=== PATIENT | female | born 1955 | race Caucasian/White ===

== ENCOUNTER → 2017-09-13 | Outpatient (CLI) | payer OTHER | LOC: M RAD 10:08 | DX: R22.43 Localized swelling, mass and lump, lower limb, bilateral (principal); I70.213 Atherosclerosis of native arteries of extremities with intermittent claudication, bilateral legs | CPT/HCPCS: 93925 ==

== ENCOUNTER → 2017-09-30 | Outpatient (CLI) | payer OTHER ==
[2017-09-30 15:50] LABS: BASO % 0.2 % (0.0-1.0); EOS # 0.3 10^3/uL (0.0-0.50); EOS % 3.5 % (0.0-3.0); HEMATOCRIT 32.3 % (36.0-47.0); HEMOGLOBIN 10.9 g/dl (12.0-15.5); IMMATURE GRANULOCYTE % 0.1 % (0-3.0); LYMPH # 1.9 10^3/uL (1.5-4.5); LYMPH % 22.7 % (24.0-44.0); MEAN CORPUSCULAR HEMOGLOBIN 28.9 pg (27.0-33.0); MEAN CORPUSCULAR HGB CONC 33.7 g/dl (32.0-36.5); MEAN CORPUSCULAR VOLUME 85.7 fl (80.0-96.0); MONO # 0.5 10^3/uL (0.0-0.8); MONO % 6.3 % (0.0-5.0); NEUTROPHILS # 5.6 10^3/uL (1.8-7.7); NEUTROPHILS % 67.2 % (36.0-66.0); PLATELET COUNT, AUTOMATED 287 10^3/uL (150-450); RED BLOOD COUNT 3.77 10^6/uL (4.00-5.40); RED CELL DISTRIBUTION WIDTH 12.2 % (11.5-14.5); WHITE BLOOD COUNT 8.3 10^3/uL (4.0-10.0)
[2017-09-30 16:21] LABS: ANION GAP 11 MEQ/L (8-16); BLOOD UREA NITROGEN 17 MG/DL (7-18); CALCIUM LEVEL 8.6 MG/DL (8.8-10.2); CARBON DIOXIDE LEVEL 22 MEQ/L (21-32); CHLORIDE LEVEL 104 MEQ/L (98-107); CREATININE FOR GFR 1.08 MG/DL (0.55-1.30); GLOMERULAR FILTRATION RATE 54.9 (>45); GLUCOSE, FASTING 302 MG/DL (70-100); SODIUM LEVEL 137 MEQ/L (136-145)
[2017-09-30 16:22] LABS: POTASSIUM SERUM 5.2 MEQ/L (3.5-5.1)
== END ==
LOC: M LAB 15:01
DX: I70.213 Atherosclerosis of native arteries of extremities with intermittent claudication, bilateral legs (principal); I87.393 Chronic venous hypertension (idiopathic) with other complications of bilateral lower extremity
CPT/HCPCS: 80048

== ENCOUNTER → 2017-10-14 | Outpatient (CLI) | payer OTHER ==
[~2017-10-14] MED LIST: HEPARIN 1,000 UNITS/ML 10ML VIAL (FOR RADIOLOGY& DIALYSIS ONLY) As Ordered; ISOVUE-300 61% 50ML VIAL (Q9967) As Ordered; MIDAZOLAM INJ 2 MG/2 ML VIAL (J2250) As Ordered; fentaNYL 100 MCG/2 ML INJECTION (J3010) As Ordered
== END | disposition home or self-care (01) ==
LOC: M IRPRO 06:22
DX: I73.9 Peripheral vascular disease, unspecified (principal); L97.929 Non-pressure chronic ulcer of unspecified part of left lower leg with unspecified severity; M79.89 Other specified soft tissue disorders; E11.51 Type 2 diabetes mellitus with diabetic peripheral angiopathy without gangrene; I10 Essential (primary) hypertension; E78.00 Pure hypercholesterolemia, unspecified; G47.33 Obstructive sleep apnea (adult) (pediatric); Z87.891 Personal history of nicotine dependence
CPT/HCPCS: 36247

== ENCOUNTER 2017-12-16 08:10 | Day surgery (SDC) | payer OTHER ==
[2017-12-16] MEDS: NS 1,000 ML IV (08:15)
[2017-12-16] MEDS ORDERED: fentaNYL 100 MCG/2 ML INJECTION (J3010) As Ordered (09:32)
[2017-12-16] MEDS ORDERED: PROPOFOL 500 MG/50 ML VIAL As Ordered (10:27)
[2017-12-16] MEDS ORDERED: LIDOCAINE 2% INJ 100 MG/5 ML SDV (FOR ANES.) As Ordered (10:27)
== END 2017-12-16 12:45 | disposition home or self-care (01) ==
LOC: M OPP 08:10
DX: D50.9 Iron deficiency anemia, unspecified (principal); K64.8 Other hemorrhoids; K57.30 Diverticulosis of large intestine without perforation or abscess without bleeding; K29.70 Gastritis, unspecified, without bleeding; K31.89 Other diseases of stomach and duodenum; I10 Essential (primary) hypertension; E78.5 Hyperlipidemia, unspecified; I73.9 Peripheral vascular disease, unspecified; E10.9 Type 1 diabetes mellitus without complications; E04.1 Nontoxic single thyroid nodule; R19.7 Diarrhea, unspecified; K21.9 Gastro-esophageal reflux disease without esophagitis; R12 Heartburn; J45.909 Unspecified asthma, uncomplicated; G47.30 Sleep apnea, unspecified; R06.83 Snoring; Z87.891 Personal history of nicotine dependence; Z79.82 Long term (current) use of aspirin; Z79.899 Other long term (current) drug therapy; Z79.4 Long term (current) use of insulin; Z80.1 Family history of malignant neoplasm of trachea, bronchus and lung
CPT/HCPCS: 45380

== ENCOUNTER 2018-01-24 17:27 | Emergency (ER) | payer OTHER ==
[2018-01-24 18:10] LABS: BASO % 0.4 % (0.0-1.0); EOS # 0.4 10^3/uL (0.0-0.50); EOS % 4.4 % (0.0-3.0); HEMATOCRIT 36.7 % (36.0-47.0); IMMATURE GRANULOCYTE % 0.3 % (0-3.0); LYMPH % 25.5 % (24.0-44.0); MEAN CORPUSCULAR HEMOGLOBIN 28.7 pg (27.0-33.0); MEAN CORPUSCULAR HGB CONC 32.7 g/dl (32.0-36.5); MEAN CORPUSCULAR VOLUME 87.8 fl (80.0-96.0); MONO # 0.6 10^3/uL (0.0-0.8); MONO % 7.2 % (0.0-5.0); NEUTROPHILS # 4.9 10^3/uL (1.8-7.7); NEUTROPHILS % 62.2 % (36.0-66.0); PLATELET COUNT, AUTOMATED 285 10^3/uL (150-450); RED BLOOD COUNT 4.18 10^6/uL (4.00-5.40); RED CELL DISTRIBUTION WIDTH 12.7 % (11.5-14.5); WHITE BLOOD COUNT 7.9 10^3/uL (4.0-10.0)
[2018-01-24 18:38] LABS: ANION GAP 10 MEQ/L (8-16); BLOOD UREA NITROGEN 27 MG/DL (7-18); C REACTIVE PROTEIN QUANTITATIV < 0.30 MG/DL (0.00-0.30); CALCIUM LEVEL 9.2 MG/DL (8.8-10.2); CARBON DIOXIDE LEVEL 23 MEQ/L (21-32); CHLORIDE LEVEL 104 MEQ/L (98-107); CREATININE FOR GFR 1.46 MG/DL (0.55-1.30); GLOMERULAR FILTRATION RATE 38.8 (>45); GLUCOSE, FASTING 181 MG/DL (70-100); POTASSIUM SERUM 5.7 MEQ/L (3.5-5.1); SODIUM LEVEL 137 MEQ/L (136-145)
== END 2018-01-24 19:25 | disposition home or self-care (01) ==
LOC: M ED 17:27
DX: I87.2 Venous insufficiency (chronic) (peripheral) (principal); I73.9 Peripheral vascular disease, unspecified; I10 Essential (primary) hypertension; E78.00 Pure hypercholesterolemia, unspecified; J45.909 Unspecified asthma, uncomplicated; K21.9 Gastro-esophageal reflux disease without esophagitis; G47.30 Sleep apnea, unspecified; E11.51 Type 2 diabetes mellitus with diabetic peripheral angiopathy without gangrene; Z79.899 Other long term (current) drug therapy; Z79.82 Long term (current) use of aspirin; Z79.4 Long term (current) use of insulin
CPT/HCPCS: 80048

== ENCOUNTER 2022-12-03 18:44 | Inpatient (IN) | payer OTHER ==
[~2022-12-03] VITALS: Ht 154.9 cm; Wt 101.0 kg
[~2022-12-03 18:44] MED LIST changes: +ASPI81TA26 PO; +ATOR40TA75 PO; +DULO1CAP4 PO; +FERR325T3 PO; +GABA600T4 PO; -HEPARIN 1,000 UNITS/ML 10ML VIAL (FOR RADIOLOGY& DIALYSIS ONLY) As Ordered; +INSUDET SC; +INSUH10VL SC; -ISOVUE-300 61% 50ML VIAL (Q9967) As Ordered; +JANU50TA25 PO; +LISI40TA4 PO; -MIDAZOLAM INJ 2 MG/2 ML VIAL (J2250) As Ordered; +OMEP1CAP73 PO; +VICT18IN SC; -fentaNYL 100 MCG/2 ML INJECTION (J3010) As Ordered
[2022-12-03] MEDS ORDERED: METOPROLOL 5 MG/5 ML VIAL As Ordered ONE (19:33)
[2022-12-03 19:37] LABS: BASO % 0.3 % (0.0-1.0); EOS # 0.1 10^3/uL (0.0-0.5); EOS % 1.1 % (0.0-3.0); HEMATOCRIT 21.9 % (36.0-47.0); LYMPH # 1.2 10^3/uL (1.5-5.0); MEAN CORPUSCULAR HEMOGLOBIN 23.6 pg (27.0-33.0); MEAN CORPUSCULAR HGB CONC 29.7 g/dl (32.0-36.5); MEAN CORPUSCULAR VOLUME 79.3 fl (80.0-96.0); MONO # 0.7 10^3/uL (0.0-0.8); MONO % 7.9 % (2.0-8.0); NEUTROPHILS # 6.9 10^3/uL (1.5-8.5); NEUTROPHILS % 77.2 % (36.0-66.0); PLATELET COUNT, AUTOMATED 397 10^3/uL (150-450); RED BLOOD COUNT 2.76 10^6/uL (4.00-5.40); WHITE BLOOD COUNT 8.9 10^3/uL (4.0-10.0)
[2022-12-03] MEDS: METOPROLOL 5 MG/5 ML VIAL IV SCH ×3 (19:40→22:00)
[2022-12-03 19:51] LABS: HEMOGLOBIN 6.5 g/dl (12.0-15.5)
[2022-12-03 20:07] LABS: CK-MB VALUE MASS < 1.0 NG/ML (<3.6)
[2022-12-03 20:09] LABS: BLOOD UREA NITROGEN 34 MG/DL (9-23); CARBON DIOXIDE LEVEL 21 MMOL/L (20-31); CHLORIDE LEVEL 103 MMOL/L (98-107); CREATININE FOR GFR 3.08 MG/DL (0.55-1.30); GLOMERULAR FILTRATION RATE 16.1 (>45); GLUCOSE, FASTING 251 MG/DL (74-106); POTASSIUM SERUM 3.8 MMOL/L (3.5-5.1); SODIUM LEVEL 140 MMOL/L (136-145)
[2022-12-03] MEDS ORDERED: NS 1,000 ML IV ONE (20:10)
[2022-12-03 20:12] LABS: CPK CREATINE PHOSPHOKINASE 134 U/L (34-145); MB/CK RELATIVE INDEX 0.74 (< OR =4)
[2022-12-03 21:05] LABS: MB/CK RELATIVE INDEX 0.83 (< OR =4)
[2022-12-03 21:45] VITALS: BP 135/87; TEMP 98.4; O2SAT 100
[2022-12-03] MEDS ORDERED: PANTOPRAZOLE 40MG VIAL IV ONE (21:50)
[2022-12-03] MEDS ORDERED: OCTREOTIDE ACETATE 100MCG/ML VIAL **IV ADMINISTRATION ONLY IV ONE (21:50)
[2022-12-03 22:00] VITALS: BP 168/81; TEMP 99.3
[2022-12-03 22:30] VITALS: BP 172/90; TEMP 99.1
[2022-12-03] MEDS ORDERED: MOM 30ML SUSPENSION UDC PO PRN (23:10)
[2022-12-03] MEDS ORDERED: MAALOX 30 ML SUSP *UDC PO PRN (23:10)
[2022-12-03 23:40] VITALS: BP 170/79; TEMP 98.9; O2SAT 97
[2022-12-03 23:46] LABS: CK-MB VALUE MASS 1.6 NG/ML (<3.6)
[2022-12-03 23:49] LABS: MB/CK RELATIVE INDEX 1.26 (< OR =4)
[2022-12-04] VITALS (11 sets, daily range): BP systolic 147–198; BP diastolic 70–95; TEMP 96.4–98.9; O2SAT 97–100
[2022-12-04] MEDS ORDERED: OCTREOTIDE ACETATE 1,200 MCG in NS 238.8 ML IV SCH ×2
[2022-12-04] MEDS ORDERED: GLUCOSE 4GM CHEW TABLET PO PRN (00:10)
[2022-12-04] MEDS ORDERED: GLUCAGON INJ 1MG VIAL SC PRN (00:10)
[2022-12-04] MEDS ORDERED: DEXTROSE 50% 50ML SYRINGE IV PRN (00:10)
[2022-12-04] MEDS ORDERED: JARD1TAB PO (02:13)
[2022-12-04] MEDS ORDERED: DULA4.5P SC (02:13)
[2022-12-04] MEDS ORDERED: ASPI-655 PO (02:13)
[2022-12-04] MEDS ORDERED: TRES1INJ SC (02:13)
[2022-12-04] MEDS ORDERED: DULO1CAP4 PO (02:13)
[2022-12-04] MEDS ORDERED: METF-723 PO (02:13)
[2022-12-04] MEDS ORDERED: HOME MED LIST COMPLETE! XX SCH (02:15)
[2022-12-04] MEDS: METOPROLOL SUCC *XL* 25MG TAB (TopROL *XL*) PO SCH ×2 (06:13→21:21)
[2022-12-04 06:28] LABS: BASO % 0.4 % (0.0-1.0); EOS # 0.1 10^3/uL (0.0-0.5); EOS % 0.7 % (0.0-3.0); HEMATOCRIT 30.7 % (36.0-47.0); LYMPH # 1.3 10^3/uL (1.5-5.0); LYMPH % 17.9 % (24.0-44.0); MEAN CORPUSCULAR HEMOGLOBIN 25.3 pg (27.0-33.0); MEAN CORPUSCULAR HGB CONC 31.3 g/dl (32.0-36.5); MEAN CORPUSCULAR VOLUME 80.8 fl (80.0-96.0); MONO # 0.8 10^3/uL (0.0-0.8); MONO % 10.8 % (2.0-8.0); NEUTROPHILS # 5.2 10^3/uL (1.5-8.5); NEUTROPHILS % 69.9 % (36.0-66.0); PLATELET COUNT, AUTOMATED 361 10^3/uL (150-450); WHITE BLOOD COUNT 7.4 10^3/uL (4.0-10.0)
[2022-12-04 06:31] LABS: HEMOGLOBIN 9.6 g/dl (12.0-15.5)
[2022-12-04 06:53] LABS: ALBUMIN 2.6 G/DL (3.2-5.2); BILIRUBIN,TOTAL 0.4 MG/DL (0.3-1.2); CREATININE FOR GFR 2.92 MG/DL (0.55-1.30); GLOMERULAR FILTRATION RATE 17.1 (>45); PERCENT SATURATION 29.6 % (13.2-45.0)
[2022-12-04 06:55] LABS: HEMOGLOBIN A1c 7.1 % (4.0-6.0)
[2022-12-04 06:58] LABS: THYROID STIMULATING HORMONE 1.506 uIU/ML (0.55-4.78)
[2022-12-04 06:59] LABS: FREE T4 0.86 NG/DL (0.89-1.76)
[2022-12-04] MEDS: NS 1,000 ML IV SCH ×2 (08:21→19:46)
[2022-12-04] MEDS: LEVEMIR (INSULIN DETEMIR) 1 UNITS/0.01ML SC SCH (08:37)
[2022-12-04] MEDS: INSULIN LISPRO (NovoLOG) PER UNIT SC SCH ×3 (08:38→17:30)
[2022-12-04] MEDS: PANTOPRAZOLE 40MG VIAL IV SCH ×2 (08:38→21:22)
[2022-12-04] MEDS: DULoxetine 20MG CAP (CYMBALTA) PO SCH (08:39)
[2022-12-04] MEDS: GABAPENTIN 300 MG CAP PO SCH ×2 (08:39→21:20)
[2022-12-04] MEDS: LACTOBACILLUS ACIDOPHILUS CAP (BACID) PO SCH ×4 (08:39→21:20)
[2022-12-04] MEDS ORDERED: amLODIPine 5 MG TAB PO SCH (09:00)
[2022-12-04] MEDS: FERROUS SULFATE 325MG TAB PO SCH ×2 (10:21→21:20)
[2022-12-04] MEDS: SUCRALFATE SUSP 1GM/10ML UD PO SCH ×3 (12:10→21:22)
[2022-12-04 12:26] LABS: HEMATOCRIT 30.5 % (36.0-47.0); HEMOGLOBIN 9.5 g/dl (12.0-15.5)
[2022-12-04] MEDS ORDERED: REMDESIVIR 200 MG in NS 250 ML IV ONE (14:00)
[2022-12-04] MEDS ORDERED: amLODIPine 5 MG TAB PO ONE (15:30)
[2022-12-04 16:46] LABS: CALCIUM LEVEL 7.7 MG/DL (8.3-10.6); CREATININE FOR GFR 2.61 MG/DL (0.55-1.30); GLOMERULAR FILTRATION RATE 19.5 (>45); POTASSIUM SERUM 3.8 MMOL/L (3.5-5.1)
[2022-12-04 18:08] LABS: HEMATOCRIT 30.5 % (36.0-47.0); HEMOGLOBIN 9.6 g/dl (12.0-15.5)
[2022-12-04] MEDS ORDERED: ATORVASTATIN 20 MG TAB PO SCH (21:00)
[2022-12-04] MEDS ORDERED: INSULIN LISPRO (NovoLOG) PER UNIT SC SCH (21:00)
[2022-12-04] MEDS ORDERED: NIRMATRELVIR/RITONAVIR (RENAL) CO-PACK (EUA) PO SCH (21:00)
[2022-12-05] VITALS (8 sets, daily range): BP systolic 119–153; BP diastolic 59–90; TEMP 96.3–98; O2SAT 94–98
[2022-12-05 00:24] LABS: HEMATOCRIT 27.7 % (36.0-47.0); HEMOGLOBIN 8.6 g/dl (12.0-15.5)
[2022-12-05] MEDS ORDERED: **hydrALAZINE** 10 MG TAB PO ONE (01:00)
[2022-12-05 06:04] LABS: BASO % 0.2 % (0.0-1.0); EOS # 0.2 10^3/uL (0.0-0.5); EOS % 2.3 % (0.0-3.0); HEMATOCRIT 28.4 % (36.0-47.0); HEMOGLOBIN 8.8 g/dl (12.0-15.5); LYMPH # 1.4 10^3/uL (1.5-5.0); LYMPH % 14.9 % (24.0-44.0); MEAN CORPUSCULAR VOLUME 80.7 fl (80.0-96.0); MONO # 0.9 10^3/uL (0.0-0.8); NEUTROPHILS % 73.3 % (36.0-66.0); PLATELET COUNT, AUTOMATED 331 10^3/uL (150-450); RED BLOOD COUNT 3.52 10^6/uL (4.00-5.40); WHITE BLOOD COUNT 9.5 10^3/uL (4.0-10.0)
[2022-12-05] MEDS: NS 1,000 ML IV SCH (06:18)
[2022-12-05 06:29] LABS: CALCIUM LEVEL 7.6 MG/DL (8.3-10.6); CREATININE FOR GFR 2.34 MG/DL (0.55-1.30); GLOMERULAR FILTRATION RATE 22.1 (>45); MAGNESIUM LEVEL 1.2 MG/DL (1.8-2.4); POTASSIUM SERUM 3.8 MMOL/L (3.5-5.1)
[2022-12-05] MEDS: LEVEMIR (INSULIN DETEMIR) 1 UNITS/0.01ML SC SCH (08:16)
[2022-12-05] MEDS: MAG SULF 1GM/100ML (MAG RUN) 1 GM in IV 1 EA IV SCH ×4 (08:17→13:42)
[2022-12-05] MEDS: GABAPENTIN 300 MG CAP PO SCH (08:17)
[2022-12-05] MEDS: INSULIN LISPRO (NovoLOG) PER UNIT SC SCH ×2 (08:17→12:00)
[2022-12-05] MEDS: LACTOBACILLUS ACIDOPHILUS CAP (BACID) PO SCH ×2 (08:18→12:28)
[2022-12-05] MEDS: FERROUS SULFATE 325MG TAB PO SCH (08:18)
[2022-12-05] MEDS: SUCRALFATE SUSP 1GM/10ML UD PO SCH ×3 (08:18→17:14)
[2022-12-05] MEDS: DULoxetine 20MG CAP (CYMBALTA) PO SCH (08:18)
[2022-12-05] MEDS: PANTOPRAZOLE 40MG VIAL IV SCH (08:20)
[2022-12-05] MEDS ORDERED: METOPROLOL TART 50 MG TAB PO SCH (09:00)
[2022-12-05] MEDS ORDERED: LOPR1TAB6 PO (10:26)
[2022-12-05] MEDS ORDERED: PROT1TAB2 PO (10:26)
[2022-12-05] MEDS ORDERED: FERR1TAB8 PO (10:26)
[2022-12-05] MEDS ORDERED: GABA-1171 PO (10:26)
[2022-12-05] MEDS ORDERED: SUCR1SS PO (10:26)
[2022-12-05] MEDS ORDERED: AMLO1TAB25 PO (10:26)
[2022-12-05] MEDS ORDERED: REMDESIVIR 100 MG in NS 250 ML IV SCH (14:00)
== END 2022-12-05 22:28 | disposition home or self-care (01) | DRG 377 ==
LOC: M ED 18:44 → M ED INP 12-04 02:16 → M PCU 12-04 05:56
PROVIDERS: ADMIT Internal Medicine; ATTEND Internal Medicine
PROC: 30233N1 Transfusion of Nonautologous Red Blood Cells into Peripheral Vein, Percutaneous Approach (ICD-10-PCS; principal; 2022-12-04)
DX: K92.2 Gastrointestinal hemorrhage, unspecified (principal); U07.1 COVID-19; N17.9 Acute kidney failure, unspecified; I24.8 Other forms of acute ischemic heart disease; I48.91 Unspecified atrial fibrillation; I12.9 Hypertensive chronic kidney disease with stage 1 through stage 4 chronic kidney disease, or unspecified chronic kidney disease; E11.9 Type 2 diabetes mellitus without complications; N18.30 Chronic kidney disease, stage 3 unspecified; D64.9 Anemia, unspecified; R29.6 Repeated falls; I25.10 Atherosclerotic heart disease of native coronary artery without angina pectoris; Z95.2 Presence of prosthetic heart valve; Z79.82 Long term (current) use of aspirin; Z79.899 Other long term (current) drug therapy; E78.5 Hyperlipidemia, unspecified; Z87.891 Personal history of nicotine dependence

== ENCOUNTER → 2023-04-05 | Outpatient (REF) | payer OTHER ==
[~2023-04-05] MED LIST changes: +AMLO1TAB25 PO; +ASPI-655 PO; +DULA4.5P SC; +FERR1TAB8 PO; +GABA-1171 PO; +JARD1TAB PO; +LOPR1TAB6 PO; +METF-723 PO; +PROT1TAB2 PO; +SUCR1SS PO; +TRES1INJ SC
[2023-04-05 19:52] LABS: CREATININE,RANDOM URINE 49.5 MG/DL
[2023-04-05 19:53] LABS: TOTAL PROTEIN,RANDOM URINE 234.6 MG/DL (0.0-14.0)
== END ==
LOC: M LAB REF 16:54
PROVIDERS: ATTEND Internal Medicine Nephrology
DX: N18.32 Chronic kidney disease, stage 3b (principal)

== ENCOUNTER → 2023-12-13 | Outpatient (REF) | payer OTHER ==
[~2023-12-13] MED LIST changes: +GABA-1490 PO; -GABA600T4 PO
[2023-12-13 18:51] LABS: CREATININE,RANDOM URINE 99.6 MG/DL; TOTAL PROTEIN,RANDOM URINE 159.9 MG/DL (0.0-14.0)
== END ==
LOC: M LAB REF 17:15
PROVIDERS: ATTEND Internal Medicine Nephrology
DX: E11.21 Type 2 diabetes mellitus with diabetic nephropathy (principal)

== ENCOUNTER → 2024-04-10 | Outpatient (REF) | payer OTHER ==
[2024-04-10 18:45] LABS: CREATININE,RANDOM URINE 67.7 MG/DL
[2024-04-10 18:47] LABS: TOTAL PROTEIN,RANDOM URINE 305.8 MG/DL (0.0-14.0)
== END ==
LOC: M LAB REF 17:13
PROVIDERS: ATTEND Internal Medicine Nephrology
DX: E11.21 Type 2 diabetes mellitus with diabetic nephropathy (principal)

== ENCOUNTER 2024-05-24 15:13 | Inpatient (IN) | payer OTHER ==
[~2024-05-24] VITALS: Ht 154.9 cm; Wt 98.2 kg
[2024-05-24] MEDS: NS (Normal Saline) 0.9% 1,000 ML IV ONE (16:20)
[2024-05-24 17:41] LABS: BASO % 0.1 % (0.0-1.0); EOS # 0.1 10^3/uL (0.0-0.5); EOS % 0.5 % (0.0-3.0); HEMOGLOBIN 11.7 g/dl (12.0-15.5); LYMPH # 1.1 10^3/uL (1.5-5.0); LYMPH % 7.8 % (24.0-44.0); MEAN CORPUSCULAR HEMOGLOBIN 28.6 pg (27.0-33.0); MEAN CORPUSCULAR HGB CONC 32.5 g/dl (32.0-36.5); MONO % 6.8 % (2.0-8.0); NEUTROPHILS # 11.9 10^3/uL (1.5-8.5); NEUTROPHILS % 84.3 % (36.0-66.0); PLATELET COUNT, AUTOMATED 274 10^3/uL (150-450); RED BLOOD COUNT 4.09 10^6/uL (4.00-5.40); WHITE BLOOD COUNT 14.2 10^3/uL (4.0-10.0)
[2024-05-24 18:03] LABS: INR 1.09; PARTIAL THROMBOPLASTIN TIME 21.9 SECONDS (24.8-34.2); PROTHROMBIN TIME 14.4 SECONDS (12.5-14.5)
[2024-05-24 18:11] LABS: LIPASE 53 U/L (12-53)
[2024-05-24 18:13] LABS: ALBUMIN 3.2 G/DL (3.2-5.2); ALKALINE PHOSPHATASE 115 U/L (35-104); ALT/SGPT 17 U/L (7.0-40); AST/SGOT 29 U/L (<34); BILIRUBIN,DIRECT < 0.1 MG/DL (<0.4); BILIRUBIN,TOTAL 0.2 MG/DL (0.3-1.2); BLOOD UREA NITROGEN 45 MG/DL (9-23); CALCIUM LEVEL 8.5 MG/DL (8.3-10.6); CARBON DIOXIDE LEVEL 22 MMOL/L (20-31); CHLORIDE LEVEL 106 MMOL/L (98-107); CK-MB VALUE MASS < 1.0 NG/ML (<3.6); CREATININE FOR GFR 2.08 MG/DL (0.55-1.30); GLOMERULAR FILTRATION RATE 25.2 (>45); GLUCOSE, FASTING 188 MG/DL (74-106); MAGNESIUM LEVEL 1.8 MG/DL (1.8-2.4); POTASSIUM SERUM 5.3 MMOL/L (3.5-5.1); SODIUM LEVEL 140 MMOL/L (136-145); TOTAL PROTEIN 6.4 G/DL (5.7-8.2)
[2024-05-24 18:14] LABS: FREE T4 1.42 NG/DL (0.89-1.76)
[2024-05-24 18:16] LABS: CPK CREATINE PHOSPHOKINASE 61 U/L (34-145); MB/CK RELATIVE INDEX 1.63 (< OR =4)
[2024-05-24] MEDS ORDERED: CIPROFLOXACIN 400 MG in IV 1 EA IV ONE (20:00)
[2024-05-24] MEDS ORDERED: metroNIDAZOLE 500 MG in IV 1 EA IV ONE (20:00)
[2024-05-24] MEDS ORDERED: MAALOX 30 ML SUSP *UDC PO PRN (21:00)
[2024-05-24] MEDS: NS (Normal Saline) 0.9% 1,000 ML IV SCH (21:00)
[2024-05-24] MEDS: DOCUSATE SODIUM 100MG CAPSULE PO SCH (21:00)
[2024-05-24] MEDS ORDERED: MOM 30ML SUSPENSION UDC PO PRN (21:00)
[2024-05-24] MEDS ORDERED: ACETAMINOPHEN 325 MG TAB PO PRN (21:00)
[2024-05-24] MEDS: HumuLIN R (REGULAR) INSULIN (NovoLIN R) **100U/ML** PER UNIT IV ONE (21:03)
[2024-05-24] MEDS: DEXTROSE 50% 50ML SYRINGE IV STA (21:04)
[2024-05-24] MEDS: CALCIUM GLUCONATE 1,000 MG in DEXTROSE 5% (D5W) MINI-BAG PLU 100 ML IV ONE (21:04)
[2024-05-24] MEDS: PANTOPRAZOLE 40MG VIAL IV ONE (21:16)
[2024-05-24] MEDS: PIPERACILLIN/TAZOBACTAM SOD 4.5 GM in DEXTROSE 5% (D5W) ADV/MINI-BAG 50 ML IV ONE (21:17)
[2024-05-24] MEDS ORDERED: AMLO1TAB24 PO (23:50)
[2024-05-24] MEDS ORDERED: METO50TA7 PO (23:50)
[2024-05-24] MEDS ORDERED: FERR325T19 PO (23:50)
[2024-05-24] MEDS ORDERED: GABA-1171 PO (23:50)
[2024-05-24] MEDS ORDERED: PANT40TA29 PO (23:50)
[2024-05-24] MEDS ORDERED: ECOT81TA5 PO (23:50)
[2024-05-24] MEDS ORDERED: ATOR80TA59 PO (23:50)
[2024-05-24] MEDS ORDERED: LISI10TA22 PO (23:50)
[2024-05-25] MEDS ORDERED: HOME MED LIST COMPLETE! XX SCH (00:05)
[2024-05-25 01:25] LABS: KETONE, URINE AUTO RFX NEGATIVE (NEGATIVE); LEUKOCYTE ESTERASE UR AUTO RFX NEGATIVE (NEGATIVE); MUCUS, URINE RFX SMALL (NEGATIVE); NITRITE, URINE AUTO RFX NEGATIVE (NEGATIVE); RBC, URINE AUTO RFX 1 /HPF (0-3); SQUAM EPITHELIAL CELL UR AURFX 4 /HPF (0-6); WBC, URINE AUTO RFX 3 /HPF (0-3)
[2024-05-25] MEDS ORDERED: GLUCOSE 4 GM CHEW PO PRN (05:20)
[2024-05-25] MEDS ORDERED: DEXTROSE 50% 50ML SYRINGE IV PRN (05:20)
[2024-05-25] MEDS ORDERED: GLUCAGON INJ 1MG VIAL SC PRN (05:20)
[2024-05-25] MEDS ORDERED: LABETALOL 100MG/20ML VIAL IV PRN (05:20)
[2024-05-25 06:00] LABS: HEMATOCRIT 30.3 % (36.0-47.0); HEMOGLOBIN 9.8 g/dl (12.0-15.5); MEAN CORPUSCULAR HEMOGLOBIN 28.4 pg (27.0-33.0); MEAN CORPUSCULAR HGB CONC 32.3 g/dl (32.0-36.5); MEAN CORPUSCULAR VOLUME 87.8 fl (80.0-96.0); PLATELET COUNT, AUTOMATED 231 10^3/uL (150-450); RED BLOOD COUNT 3.45 10^6/uL (4.00-5.40); WHITE BLOOD COUNT 10.8 10^3/uL (4.0-10.0)
[2024-05-25 06:35] LABS: CALCIUM LEVEL 8.1 MG/DL (8.3-10.6); CREATININE FOR GFR 2.05 MG/DL (0.55-1.30); GLOMERULAR FILTRATION RATE 25.6 (>45); MAGNESIUM LEVEL 1.6 MG/DL (1.8-2.4); POTASSIUM SERUM 4.8 MMOL/L (3.5-5.1)
[2024-05-25] MEDS: INSULIN LISPRO (NovoLOG) PER UNIT SC SCH (06:59)
[2024-05-25] MEDS ORDERED: PIPERACILLIN/TAZOBACTAM SOD 3.375 GM in DEXTROSE 5% (D5W) ADV/MINI-BAG 50 ML IV SCH (08:50)
[2024-05-25] MEDS: PIPERACILLIN/TAZOBACTAM SOD 2.25 GM in DEXTROSE 5% (D5W) ADV/MINI-BAG 50 ML IV SCH (09:00)
[2024-05-25] MEDS: MAG SULF 1GM/100ML (MAG RUN) 1 GM in IV 1 EA IV SCH (09:00)
[2024-05-25] MEDS: METOPROLOL TART 50 MG TAB PO SCH (09:40)
[2024-05-25] MEDS: PANTOPRAZOLE 40MG VIAL IV SCH (09:41)
[2024-05-25] MEDS: GABAPENTIN 100 MG CAP PO SCH (09:41)
[2024-05-25] MEDS: DULoxetine 20MG CAP (CYMBALTA) PO SCH (09:42)
[2024-05-25 13:30] LABS: HEMATOCRIT 30.7 % (36.0-47.0); HEMOGLOBIN 9.9 g/dl (12.0-15.5)
[2024-05-25 18:51] LABS: HEMATOCRIT 31.2 % (36.0-47.0); HEMOGLOBIN 10.1 g/dl (12.0-15.5)
[2024-05-25 20:29] VITALS: BP 160/70; TEMP 97.8; O2SAT 10; O2SAT 100
[2024-05-25] MEDS: ATORVASTATIN 20 MG TAB PO SCH (20:57)
[2024-05-25 23:46] VITALS: BP_SYST 122; BP_SYST 127; BP_SYST 130; BP_DIAS 55; BP_DIAS 58
[2024-05-25 23:49] VITALS: BP 127/58; TEMP 98.1; O2SAT 99
[2024-05-26 00:15] VITALS: O2SAT 87
[2024-05-26 01:25] LABS: HEMATOCRIT 26.8 % (36.0-47.0); HEMOGLOBIN 8.8 g/dl (12.0-15.5)
[2024-05-26 02:37] VITALS: O2SAT 75
[2024-05-26 03:57] VITALS: BP 132/62; TEMP 97; O2SAT 100
[2024-05-26 07:21] LABS: HEMATOCRIT 27.4 % (36.0-47.0); HEMOGLOBIN 8.9 g/dl (12.0-15.5); MEAN CORPUSCULAR HEMOGLOBIN 29.2 pg (27.0-33.0); MEAN CORPUSCULAR HGB CONC 32.5 g/dl (32.0-36.5); MEAN CORPUSCULAR VOLUME 89.8 fl (80.0-96.0); PLATELET COUNT, AUTOMATED 206 10^3/uL (150-450); RED BLOOD COUNT 3.05 10^6/uL (4.00-5.40); WHITE BLOOD COUNT 7.4 10^3/uL (4.0-10.0)
[2024-05-26 07:43] VITALS: BP 130/60; TEMP 97; O2SAT 100
[2024-05-26 07:55] LABS: CALCIUM LEVEL 8.1 MG/DL (8.3-10.6); GLOMERULAR FILTRATION RATE 26.4 (>45); MAGNESIUM LEVEL 1.7 MG/DL (1.8-2.4); POTASSIUM SERUM 4.5 MMOL/L (3.5-5.1)
[2024-05-26 08:54] VITALS: BP 130/60
[2024-05-26] MEDS: MAG SULF 1GM/100ML (MAG RUN) 1 GM in IV 1 EA IV ONE (09:34)
[2024-05-26] MEDS ORDERED: HYDR26CR TOP (10:59)
[2024-05-26] MEDS ORDERED: MAGN400C PO ×2 (10:59→11:36)
[2024-05-26] MEDS ORDERED: METR-265 PO (10:59)
[2024-05-26] MEDS ORDERED: CIPR-250 PO (10:59)
[2024-05-26] MEDS ORDERED: INSULIN LISPRO (NovoLOG) PER UNIT SC SCH ×2 (12:00→21:00)
== END 2024-05-26 12:20 | disposition home or self-care (01) | DRG 379 ==
LOC: EDBD 15:13 → M ED 15:13 → M ED INP 20:56 → M PCU 05-25 20:23
PROVIDERS: ADMIT Student in an Organized Health Care Education/Training Program; ATTEND Student in an Organized Health Care Education/Training Program
DX: K57.33 Diverticulitis of large intestine without perforation or abscess with bleeding (principal); I12.9 Hypertensive chronic kidney disease with stage 1 through stage 4 chronic kidney disease, or unspecified chronic kidney disease; E11.22 Type 2 diabetes mellitus with diabetic chronic kidney disease; I25.10 Atherosclerotic heart disease of native coronary artery without angina pectoris; I48.91 Unspecified atrial fibrillation; E78.5 Hyperlipidemia, unspecified; E87.5 Hyperkalemia; Z95.5 Presence of coronary angioplasty implant and graft; R55 Syncope and collapse; D64.9 Anemia, unspecified; N18.30 Chronic kidney disease, stage 3 unspecified; E83.42 Hypomagnesemia; E04.1 Nontoxic single thyroid nodule; I95.1 Orthostatic hypotension; E11.40 Type 2 diabetes mellitus with diabetic neuropathy, unspecified; Z79.82 Long term (current) use of aspirin; Z79.899 Other long term (current) drug therapy; Z95.2 Presence of prosthetic heart valve; Z86.718 Personal history of other venous thrombosis and embolism; Z98.41 Cataract extraction status, right eye; Z98.42 Cataract extraction status, left eye; Z87.891 Personal history of nicotine dependence; K64.8 Other hemorrhoids

== ENCOUNTER 2024-06-19 18:43 | Emergency (ER) | payer OTHER ==
[~2024-06-19] VITALS: Ht 154.9 cm; Wt 97.7 kg
[~2024-06-19 18:43] MED LIST changes: +AMLO1TAB24 PO; +ATOR80TA59 PO; +CIPR-250 PO; +ECOT81TA5 PO; +FERR325T19 PO; +HYDR26CR TOP; +LISI10TA22 PO; +MAGN400C PO; +METO50TA7 PO; +METR-265 PO; +PANT40TA29 PO
[2024-06-19 20:20] LABS: BASO % 0.4 % (0.0-1.0); EOS # 0.3 10^3/uL (0.0-0.5); EOS % 3.9 % (0.0-3.0); HEMATOCRIT 33.7 % (36.0-47.0); HEMOGLOBIN 10.7 g/dl (12.0-15.5); LYMPH # 1.9 10^3/uL (1.5-5.0); LYMPH % 24.7 % (24.0-44.0); MEAN CORPUSCULAR HEMOGLOBIN 28.7 pg (27.0-33.0); MEAN CORPUSCULAR HGB CONC 31.8 g/dl (32.0-36.5); MEAN CORPUSCULAR VOLUME 90.3 fl (80.0-96.0); MONO # 0.5 10^3/uL (0.0-0.8); MONO % 6.9 % (2.0-8.0); NEUTROPHILS % 63.8 % (36.0-66.0); PLATELET COUNT, AUTOMATED 309 10^3/uL (150-450); RED BLOOD COUNT 3.73 10^6/uL (4.00-5.40); WHITE BLOOD COUNT 7.8 10^3/uL (4.0-10.0)
[2024-06-19 20:49] LABS: CALCIUM LEVEL 8.9 MG/DL (8.3-10.6); CREATININE FOR GFR 2.09 MG/DL (0.55-1.30); GLOMERULAR FILTRATION RATE 25.1 (>45); POTASSIUM SERUM 5.4 MMOL/L (3.5-5.1)
[2024-06-20] MEDS ORDERED: HumuLIN R (REGULAR) INSULIN (NovoLIN R) **100U/ML** PER UNIT IV ONE (01:35)
[2024-06-20] MEDS ORDERED: DEXTROSE 50% 50ML SYRINGE IV ONE (01:35)
[2024-06-20] MEDS: PATIROMER SORBITEX CALCIUM 8.4 GM POWDER PACKET (VELTASSA) PO ONE (02:24)
[2024-06-20] MEDS: CALCIUM GLUCONATE 1,000MG/10ML VIAL (100MG/ML) IV ONE (02:24)
[2024-06-20] MEDS: HumuLIN R (REGULAR) INSULIN (NovoLIN R) **100U/ML** PER UNIT IV ONE (02:24)
[2024-06-20 05:20] LABS: CALCIUM LEVEL 10.5 MG/DL (8.3-10.6); CREATININE FOR GFR 1.82 MG/DL (0.55-1.30); GLOMERULAR FILTRATION RATE 29.4 (>45); POTASSIUM SERUM 4.7 MMOL/L (3.5-5.1)
[2024-06-20 05:45] VITALS: BP 168/72; TEMP 96.9; O2SAT 98
== END 2024-06-20 06:03 | disposition home or self-care (01) ==
LOC: M ED 18:43
DX: E87.5 Hyperkalemia (principal); E11.9 Type 2 diabetes mellitus without complications; I10 Essential (primary) hypertension; E78.5 Hyperlipidemia, unspecified; K21.9 Gastro-esophageal reflux disease without esophagitis; F32.A Depression, unspecified; Z79.84 Long term (current) use of oral hypoglycemic drugs; Z79.82 Long term (current) use of aspirin; Z79.4 Long term (current) use of insulin; Z79.811 Long term (current) use of aromatase inhibitors; Z79.899 Other long term (current) drug therapy
CPT/HCPCS: 80048; 85025; 93005; 96374; 99284; J0612; J1815

== ENCOUNTER 2024-10-26 09:36 | Day surgery (SDC) | payer OTHER ==
[~2024-10-26] VITALS: Ht 154.9 cm; Wt 95.3 kg
[~2024-10-26 09:36] MED LIST changes: +LISI40TA10 PO; -LISI40TA4 PO; +METF-1113 PO; -METF-723 PO; +SEMA1PEN2; +VITA100093 PO; +VITALIQ27 MC
[2024-10-26 11:37] VITALS: TEMP 97.3
[2024-10-26 11:55] VITALS: BP 141/63; O2SAT 96
== END 2024-10-26 12:08 | disposition home or self-care (01) ==
LOC: M OPP 09:36
PROVIDERS: ATTEND Internal Medicine Gastroenterology
DX: K64.0 First degree hemorrhoids (principal); K57.30 Diverticulosis of large intestine without perforation or abscess without bleeding; D50.9 Iron deficiency anemia, unspecified; Z95.5 Presence of coronary angioplasty implant and graft; G47.30 Sleep apnea, unspecified; Z79.82 Long term (current) use of aspirin; Z79.84 Long term (current) use of oral hypoglycemic drugs; Z79.85 Long-term (current) use of injectable non-insulin antidiabetic drugs; Z79.4 Long term (current) use of insulin